=== PATIENT | female | born 1980 | race Caucasian/White ===

== ENCOUNTER 2018-08-25 12:04 | Emergency (ER) | payer OTHER ==
[~2018-08-25] VITALS: Ht 154.9 cm; Wt 61.4 kg
[~2018-08-25 12:04] MED LIST: FERR-89 PO; IBUP-2070 PO; PREN90 PO
[2018-08-25] MEDS ORDERED: IBUPROFEN 600 MG TABLET PO ONE (15:00)
[2018-08-25 15:23] VITALS: BP 141/79
== END 2018-08-25 15:54 | disposition home or self-care (01) ==
LOC: EMS 12:05
DX: S63.502A Unspecified sprain of left wrist, initial encounter (principal); X58.XXXA Exposure to other specified factors, initial encounter; Y93.89 Activity, other specified; Y92.89 Other specified places as the place of occurrence of the external cause; Y99.8 Other external cause status

== ENCOUNTER 2021-05-14 14:01 | Emergency (ER) | payer OTHER ==
[~2021-05-14] VITALS: Ht 154.9 cm; Wt 65.9 kg
[2021-05-14 15:09] LABS: COVID AG,FIA SOURCE NASAL SWAB
[2021-05-14 15:11] LABS: BASOPHILS % (AUTO) 0.7 % (0.0-2.0); EOSINOPHILS % (AUTO) 1.8 % (1.0-6.0); HEMATOCRIT 37.3 % (36-46); HEMOGLOBIN 12.7 g/dL (12.0-16.0); LYMPHOCYTES # (AUTO) 2.2 K/uL (1.0-4.8); LYMPHOCYTES % (AUTO) 28.3 % (22.0-44.0); MEAN CORPUSCULAR HGB CONC 34.1 G/dL (31.0-37.0); MEAN CORPUSCULAR VOLUME 91 fL (80-100); MONOCYTES # (AUTO) 0.6 K/uL (0.1-1.0); MONOCYTES % (AUTO) 8.5 % (2.0-9.0); NEUTROPHILS # (AUTO) 4.6 K/uL (1.8-7.7); NEUTROPHILS % (AUTO) 60.7 % (40.0-70.0); PLATELET COUNT (AUTO) 363 K/uL (150-450); RED CELL DISTRIBUTION WIDTH 12.8 % (11.5-14.5)
[2021-05-14 15:43] LABS: PROTHROMBIN TIME 10.3 SEC (9.4-11.6)
[2021-05-14 16:03] LABS: ANION GAP 7 mmol/L (8-16); CALCIUM, TOTAL 8.6 mg/dL (8.8-10.5); CARBON DIOXIDE 25 mmol/L (22-29); CHLORIDE 104 mmol/L (98-107); CREATININE 0.76 mg/dL (0.60-1.30); GLOMERULAR FILTR. RATE CALC > 60 mL/min (>60); GLUCOSE,RANDOM 103 mg/dL (70-110); POTASSIUM 3.7 mmol/L (3.5-5.1); SODIUM SERUM 136 mmol/L (136-145); UREA NITROGEN, BLOOD 13 mg/dL (7-18)
[2021-05-14 16:14] LABS: ALANINE AMINOTRANSFERASE 24 U/L (12-78); ALKALINE PHOSPHATASE 59 U/L (46-116); ASPARTATE AMINOTRANSFERASE 11 U/L (15-37); BILIRUBIN,TOTAL 0.2 mg/dL (0.1-1.0); HCG,QUANTITATIVE < 1 mIU/mL (0-6); TOTAL PROTEIN, SERUM 7.9 g/dL (6.4-8.2)
[2021-05-14 16:23] LABS: B-TYPE NATRIURETIC PEPTIDE 37 pg/mL (0-100)
[2021-05-14 17:01] VITALS: BP 126/68
== END 2021-05-14 17:29 | disposition home or self-care (01) ==
LOC: EMS 14:01
DX: R07.9 Chest pain, unspecified (principal); R06.02 Shortness of breath; Z20.822 Contact with and (suspected) exposure to COVID-19
CPT/HCPCS: 36415; 71045; 80053; 83880; 84484; 84702; 85025; 85610; 85730; 87426; 93005; 99285; U0003

== ENCOUNTER 2021-07-26 10:45 | Emergency (ER) | payer OTHER ==
[~2021-07-26] VITALS: Ht 154.9 cm; Wt 63.6 kg
[2021-07-26 12:31] VITALS: BP 120/80
== END 2021-07-26 13:00 | disposition home or self-care (01) ==
LOC: EMS 10:49
DX: Z20.822 Contact with and (suspected) exposure to COVID-19 (principal)
CPT/HCPCS: 81025; 99283; U0003

== ENCOUNTER 2021-09-21 07:16 | Emergency (ER) | payer OTHER ==
[~2021-09-21] VITALS: Ht 154.9 cm; Wt 63.6 kg
[2021-09-21] MEDS ORDERED: PHEN-748 PO (07:18)
[2021-09-21] MEDS ORDERED: ACET-2247 PO (07:18)
[2021-09-21 08:08] LABS: COVID AG,FIA SOURCE NASOPHARYNGEAL
[2021-09-21 08:51] VITALS: BP 115/65
== END 2021-09-21 09:22 | disposition home or self-care (01) ==
LOC: EMS 07:26
DX: U07.1 COVID-19 (principal); Z79.899 Other long term (current) drug therapy
CPT/HCPCS: 71046; 93005; 99285

== ENCOUNTER 2022-04-27 16:44 | Emergency (ER) | payer OTHER ==
[~2022-04-27] VITALS: Ht 154.9 cm; Wt 63.6 kg
[~2022-04-27 16:44] MED LIST changes: +ACET-2247 PO; -FERR-89 PO; -IBUP-2070 PO; +PHEN-748 PO; -PREN90 PO
[2022-04-27 17:49] LABS: BASOPHILS % (AUTO) 0.5 % (0.0-2.0); EOSINOPHILS % (AUTO) 1.3 % (1.0-6.0); HEMATOCRIT 35.2 % (36-46); HEMOGLOBIN 12.4 g/dL (12.0-16.0); LYMPHOCYTES # (AUTO) 2.3 K/uL (1.0-4.8); LYMPHOCYTES % (AUTO) 25.2 % (22.0-44.0); MEAN CORPUSCULAR HGB CONC 35.1 G/dL (31.0-37.0); MEAN CORPUSCULAR VOLUME 88 fL (80-100); MONOCYTES # (AUTO) 0.6 K/uL (0.1-1.0); MONOCYTES % (AUTO) 6.3 % (2.0-9.0); NEUTROPHILS # (AUTO) 6.2 K/uL (1.8-7.7); NEUTROPHILS % (AUTO) 66.7 % (40.0-70.0); PLATELET COUNT (AUTO) 368 K/uL (150-450); RED BLOOD CELL COUNT(AUTO) 3.98 MIL/uL (4.00-5.20); RED CELL DISTRIBUTION WIDTH 12.4 % (11.5-14.5)
[2022-04-27 18:05] LABS: ALANINE AMINOTRANSFERASE 25 U/L (12-78); ALBUMIN 4.1 g/dL (3.4-5.0); ALKALINE PHOSPHATASE 57 U/L (46-116); ANION GAP 7 mmol/L (8-16); ASPARTATE AMINOTRANSFERASE 12 U/L (15-37); BILIRUBIN,TOTAL 0.2 mg/dL (0.1-1.0); CARBON DIOXIDE 29 mmol/L (22-29); CHLORIDE 103 mmol/L (98-107); CREATININE 0.85 mg/dL (0.60-1.30); GLUCOSE,RANDOM 89 mg/dL (70-110); POTASSIUM 3.6 mmol/L (3.5-5.1); SODIUM SERUM 139 mmol/L (136-145); TOTAL PROTEIN, SERUM 7.6 g/dL (6.4-8.2)
[2022-04-27 18:10] LABS: GLOMERULAR FILTR. RATE CALC > 60 mL/min (>60)
[2022-04-27 18:14] LABS: UREA NITROGEN, BLOOD 14 mg/dL (7-18)
[2022-04-27 19:14] LABS: COVID AG,FIA SOURCE NASOPHARYNGEAL
[2022-04-27 19:37] LABS: INFLUENZA TYPE A NEGATIVE FOR TYPE A (NEGATIVE); INFLUENZA TYPE B NEGATIVE FOR TYPE B (NEGATIVE)
[2022-04-27] MEDS ORDERED: BENZ-70 PO (20:33)
[2022-04-27 20:57] VITALS: BP 108/74
== END 2022-04-27 20:54 | disposition home or self-care (01) ==
LOC: EMS 16:54
DX: R05.9 Cough, unspecified (principal); Z20.822 Contact with and (suspected) exposure to COVID-19
CPT/HCPCS: 71045; 80053; 84484; 84703; 85025; 87804; 93005; 99285; 36415-L1; 36415-TC

== ENCOUNTER 2023-08-12 09:22 | Emergency (ER) | payer OTHER ==
[~2023-08-12] VITALS: Ht 154.9 cm; Wt 64.0 kg
[~2023-08-12 09:22] MED LIST changes: -ACET-2247 PO; +BENZ-227 PO; -PHEN-748 PO
[2023-08-12 10:10] VITALS: TEMP 99.6
[2023-08-12 11:16] LABS: COVID AG,FIA SOURCE NASAL SWAB
[2023-08-12 11:39] LABS: INFLUENZA TYPE A NEGATIVE FOR TYPE A (NEGATIVE); INFLUENZA TYPE B NEGATIVE FOR TYPE B (NEGATIVE); SARS-COV2 (COVID) ANTIGEN,FIA Negative (Negative)
[2023-08-12] MEDS ORDERED: OXYMETAZOLINE HCL 0.05% 15 ML NASAL SPRAY NASAL ONE (13:00)
[2023-08-12 13:21] VITALS: BP 110/59; PULSE 69; RESP 16
== END 2023-08-12 14:07 | disposition home or self-care (01) ==
LOC: EMS 10:32
DX: J06.9 Acute upper respiratory infection, unspecified (principal); Z20.822 Contact with and (suspected) exposure to COVID-19
CPT/HCPCS: 71045; 87804; 99284